=== PATIENT | female | born 1975 | race Caucasian/White ===

== ENCOUNTER 2016-09-08 11:09 | Outpatient (CLI) | payer OTHER | END 2016-09-08 23:00 | LOC: LAB SRH 11:09 | DX: K90.9 Intestinal malabsorption, unspecified (principal); E55.9 Vitamin D deficiency, unspecified; Z13.228 Encounter for screening for other metabolic disorders; Z13.1 Encounter for screening for diabetes mellitus; Z13.9 Encounter for screening, unspecified; F33.1 Major depressive disorder, recurrent, moderate | CPT/HCPCS: 90074; 90100; 91280; 91286; 91504; 91505; 92055 ==